=== PATIENT | female | born 1930 | race African-American/Black ===

== ENCOUNTER 2016-09-28 13:34 | Inpatient (IN) | payer OTHER ==
--- NOTE | 2016-09-28 14:53 | ED EKG INTERP ---
EKG Interpretation - EKG Time of EKG reading by physician:: 13:54 EKG Read and Signed by:: Samm Garcia EKG Interpretation (*Must complete 3 of following elements*): Abnormal Rate: 65 Rhythm: normal sinus rhythm Comments: RSR or QR pattern in V1 suggests right ventricular conduction delay Attestation - Scribe Verification/Attestation Scribe:: Isabell Salas Acting as Scribe for:: Samm Garcia Scribe documention review:: This chart was documented by a scribe and accurately reflects the service the provider performed and the decisions made by the provider.
[2016-09-28 15:06] LABS: MANUAL DIFF NEEDED? NO
[2016-09-28 15:08] LABS: BASO% 0.2 % (0.0-0.8); EOS# 0.02 X1000 (0.0-0.7); EOS% 0.2 % (0.0-10.0); HEMATOCRIT 34.9 % (37.0-47.0); HEMOGLOBIN 12.3 g/dL (12.0-16.0); IMM GRAN# 0.03 X1000 (0.0-0.04); IMM GRAN% 0.3 % (0.0-0.5); LYMPH# 1.55 X1000 (1.2-3.4); LYMPH% 14.7 % (20.5-51.1); MCH 31.1 PG (27-31); MCHC 35.2 g/dL (33-37); MCV 88.1 FL (81-99); MONO# 0.46 X1000 (0.11-0.59); MONO% 4.4 % (1.7-9.3); MPV 11.1 FL (7.4-10.4); NEUT% 80.2 % (42.2-75.2); PLT 229 X1000 (130-400); RBC 3.96 XMIL (4.2-5.4)
--- NOTE | 2016-09-28 15:25 | Diag Imaging Result Document ---
PROCEDURE NAME: CHEST-PORTABLE - 09/28/2016 SINGLE FRONTAL RADIOGRAPH OF THE CHEST: COMPARISON: 07/05/2015. FINDINGS: The lungs are grossly clear. There is no definite pleural fluid collection. 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 Cardiac silhouette and central vasculature are essentially unremarkable. There is evidence of prior granulomatous disease. IMPRESSION: Stable chest with no definite acute pathology.
--- NOTE | 2016-09-28 15:30 | PROVIDER DOCUMENTATION ---
HPI-General Adult - General Chief Complaint: Weakness Stated Complaint: DIZZY Time Seen by Provider: 09/28/16 13:44 Source: patient Allergies/Adverse Reactions: Patient Allergies Allergy/AdvReac Type Severity Reaction Status Date / Time No Known Allergies Allergy Verified 09/28/16 14:38 Home Medications: Home Medication List Medication Instructions Recorded Confirmed Last Taken Type Amlodipine Besylate 5 mg PO DAILY 07/27/12 09/28/16 09/28/16 History Losartan/Hydrochlorothiazide 1 each PO DAILY 07/27/12 09/28/16 09/28/16 History [Losartan-Hctz 100-25 mg Tab] Omeprazole 40 mg PO DAILY 05/05/15 09/28/16 09/28/16 History ATORVAstatin [Lipitor] 40 mg PO QHS 09/28/16 09/28/16 Unknown History Aspirin 81 mg PO DAILY 09/28/16 09/28/16 09/28/16 History Brimonidine 0.2% Ophth Soln 5 ml OPH DIRECTED 09/28/16 09/28/16 09/28/16 History [Alphagan 0.2% Ophth Soln] Clopidogrel Bisulfate [Plavix] 75 mg PO DAILY 09/28/16 09/28/16 09/28/16 History Cyproheptadine [Periactin] 4 mg PO BID 09/28/16 09/28/16 09/28/16 History Escitalopram Oxalate [Lexapro] 10 mg PO 09/28/16 09/28/16 History Metformin [Glucophage] 500 mg PO BID CC 09/28/16 09/28/16 Unknown History - History of Present Illness -Gen Adult Nature of Presenting Problems: Pt is 86 y/o F presents to the ED with weakness. Pt states recently started new med and has felt weak since taking it. Pt denies falling. Pt states blurred vision. Location of Pain/Injury: reports: generalized Pain Radiation: reports: no radiation Quality of Pain: reports: aching Severity: reports: mild Onset/Duration: reports: 1 week ago Timing: reports: still present Context/Activities at Onset: reports: light activity Modifying Factors: improves with: nothing Associated Symptoms: reports: weakness, other (blurred vision). denies: anxiety , arm pain, back/neck pain, chest pain, constipation, cough, diaphoresis, diarrhea, dizziness, EENT symptoms, fatigue, fever/chills, genitourinary problems, headaches, heartburn, joint pain, loss of appetite, malaise, muscle aches, sinus congestion/drainage, nausea, rash, seizure, shortness of breath, sensory/motor loss, pain with inspiration, swelling/mass in abdomen, syncope, vomiting, trouble walking Similar Symptoms Previously?: Yes Recently seen or treated by another doctor?: No Review of Systems - Adult - REVIEW OF SYSTEMS - ADULT Constitutional: reports: no symptoms reported Eyes: reports: blurred vision. denies: double vision Ears, Nose, Mouth & Throat: reports: no symptoms reported Cardiovascular: reports: no symptoms reported Respiratory: reports: no symptoms reported Gastrointestinal: reports: no symptoms reported Genitourinary: reports: no symptoms reported Musculoskeletal: reports: muscle weakness. denies: bone pain, joint pain, joint swelling Integumentary: reports: no symptoms reported Neurological: reports: no symptoms reported Psychiatric: reports: no symptoms reported Endocrine: reports: no symptoms reported Hematologic/Lymphatic: reports: no symptoms reported Allergic/Immunologic: reports: no symptoms reported All Other Systems: Reviewed and Negative Past History - Adult - PAST MEDICAL HISTORY-ADULT Review of Records: reports: Nursing Assessment Review, Medications Reviewed, Social history reviewed & non-contributory. Major Childhood Illnesses: reports: denies history Cardiovascular: reports: HTN Respiratory: reports: denies history Gastrointestinal: reports: GERD Obstetrical/Gynecological: reports: denies history Genitourinary: reports: denies history Musculoskeletal: reports: arthritis Neurological: reports: TIA Psychiatric: reports: denies history Endocrine/Immune: reports: cancer (breast), Diabetes Other Conditions: reports: denies history - PRIOR SURGERIES/PROCEDURES Surgical/Procedure History: reports: reviewed, not pertinent, cholecystectomy - PRIOR HOSPITALIZATIONS Prior Hospitalizations: reports: for other non-related - IMMUNIZATION STATUS Childhood Immunizations: See Nurse Assessment Flu Vaccine: See Nurse Assessment - FAMILY HISTORY Family History: reviewed, not pertinent - SOCIAL HISTORY Smoking: denies Substance Use: denies Living Situation: family Physical Exam-General - PHYSICAL EXAM-ADULT Initial Vital Signs Reviewed: Yes - CONSTITUTIONAL General Appearance: appears well, alert, no apparent distress - EYES Eyes: PERRL/EOMI, pink conjunctivae, fundi clear, no AV nicking - HEAD, EARS, NOSE, MOUTH & THROAT HENMT: normocephalic/atraumatic, normal ENT inspection. negative: moist mucous membranes (dry) - NECK Neck: non-tender, full range of motion, supple, normal inspection - RESPIRATORY Respiratory: chest non-tender, lungs clear, normal breath sounds, no pleuratic chest pain, no respiratory distress, no accessory muscle use - CARDIOVASCULAR Cardiovascular: normal peripheral pulses, regular rate, rhythm, no edema, no gallop, no JVD, no murmur - GASTROINTESTINAL (ABDOMEN) Abdominal Exam: normal bowel sounds, non tender, soft, no organomegaly, no pulsatile mass - LYMPHATIC Lymphatic: no adenopathy - MUSCULOSKELETAL Back Exam: normal inspection, no CVA tenderness, no vertebral tenderness Extremity: normal range of motion, non-tender, normal gait, normal inspection, no pedal edema, no calf tenderness, normal capillary refill, pelvis stable - SKIN Integumentary: normal color, normal turgor, warm/dry - NEUROLOGIC Neurologic: grossly normal - PSYCHIATRIC Psych/Mental Status: normal mood/affect, oriented x 3 Progress - PLAN OF CARE/RESULTS Progress/Plan/Lab Results: Laboratory Tests 09/28/16 09/28/16 14:56 14:56 WBC 10.52 RBC 3.96 L Hgb 12.3 Hct 34.9 L MCV 88.1 MCH 31.1 H MCHC 35.2 RDW Std Deviation 12.9 Plt Count 229 MPV 11.1 H Immature Gran % (Auto) 0.3 Neut % (Auto) 80.2 H Lymph % (Auto) 14.7 L Cameron % (Auto) 4.4 Eos % (Auto) 0.2 Baso % (Auto) 0.2 Immature Gran # (Auto) 0.03 Neut # (Auto) 8.44 H Lymph # (Auto) 1.55 Cameron # (Auto) 0.46 Eos # (Auto) 0.02 Baso # (Auto) 0.02 Troponin T < 0.010 Orders Category Date Time Status Cardiac Monitoring DIRECTED Care 09/28/16 14:47 Active Finger Stick Blood Sugar (ED) DIRECTED Care 09/28/16 14:47 Active Saline Loc NOW Care 09/28/16 14:47 Active CHEST-PORTABLE [RAD] Stat Exams 09/28/16 14:47 Draft CBC WITH ELECTRONIC DIFF [HEME] Stat Lab 09/28/16 14:56 Completed COMPREHENSIVE METABOLIC PANEL [CHEM] Stat Lab 09/28/16 14:56 Received PROTIME WITH INR [COAG] Stat Lab 09/28/16 14:56 Received PTT [COAG] Stat Lab 09/28/16 14:56 Received TROPONIN T Stat Lab 09/28/16 14:56 Completed EKG [EKG] Stat Ther 09/28/16 13:51 Ordered Vital Signs - 24 hr 09/28/16 13:46 Temperature 98.4 F Pulse Rate 70 Respiratory 18 Rate Blood Pressure 131/71 O2 Sat by Pulse 99 Oximetry Laboratory Tests 09/28/16 09/28/16 09/28/16 14:56 14:56 14:56 WBC 10.52 RBC 3.96 L Hgb 12.3 Hct 34.9 L MCV 88.1 MCH 31.1 H MCHC 35.2 RDW Std Deviation 12.9 Plt Count 229 MPV 11.1 H Immature Gran % (Auto) 0.3 Neut % (Auto) 80.2 H Lymph % (Auto) 14.7 L Cameron % (Auto) 4.4 Eos % (Auto) 0.2 Baso % (Auto) 0.2 Immature Gran # (Auto) 0.03 Neut # (Auto) 8.44 H Lymph # (Auto) 1.55 Cameron # (Auto) 0.46 Eos # (Auto) 0.02 Baso # (Auto) 0.02 PT 11.1 INR 1.05 PTT (Actin FS) 24.4 Specimen Type Sample Site pH pCO2 pO2 HCO3 Base Excess Oxyhemoglobin ABG O2 Sat (Calculated) ABG O2 Saturation ABG Carboxyhemoglobin ABG Methemoglobin Jhoan Test A-a O2 Difference Total Hemoglobin Lactate Blood Gas Modality FiO2 % Sodium 117 L* Potassium 4.7 Chloride 79 L Carbon Dioxide 22 L Anion Gap 16 BUN 32 H Creatinine 1.5 H Estimated GFR/1.73 m2 40 BUN/Creatinine Ratio 21 Glucose 898 H* Calculated Osmolality 286 Calcium 9.0 Total Bilirubin 0.72 AST 48 H ALT 42 H Alkaline Phosphatase 229 H Troponin T Total Protein 7.0 Albumin 3.8 Globulin 3.2 Albumin/Globulin Ratio 1.2 Urine Source Urine Color Urine Turbidity Urine pH Ur Specific Cardwell Urine Protein Ur Glucose (Stick) Ur Ketones (Stick) Urine Blood Urine Nitrite Urine Bilirubin Urobilinogen Dipstick Urine Leukocytes Urine WBC (Auto) Urine RBC (Auto) U Epithel Cells (Auto) Urine Bacteria (Auto) 0309/28/16 09/28/16 14:56 15:40 16:25 WBC RBC Hgb Hct MCV MCH MCHC RDW Std Deviation Plt Count MPV Immature Gran % (Auto) Neut % (Auto) Lymph % (Auto) Cameron % (Auto) Eos % (Auto) Baso % (Auto) Immature Gran # (Auto) Neut # (Auto) Lymph # (Auto) Cameron # (Auto) Eos # (Auto) Baso # (Auto) PT INR PTT (Actin FS) Specimen Type ARTERIAL Sample Site R RADIAL pH 7.45 pCO2 36 pO2 65 HCO3 25.8 Base Excess 1.2 Oxyhemoglobin 93.6 L ABG O2 Sat (Calculated) 16.6 ABG O2 Saturation 97.6 ABG Carboxyhemoglobin 2.30 ABG Methemoglobin 1.7 H Jhoan Test YES A-a O2 Difference 40.0 Total Hemoglobin 12.6 Lactate 1.40 Blood Gas Modality ROOM AIR FiO2 % 21.0 Sodium Potassium Chloride Carbon Dioxide Anion Gap BUN Creatinine Estimated GFR/1.73 m2 BUN/Creatinine Ratio Glucose Calculated Osmolality Calcium Total Bilirubin AST ALT Alkaline Phosphatase Troponin T < 0.010 Total Protein Albumin Globulin Albumin/Globulin Ratio Urine Source CLEAN CATCH Urine Color YELLOW Urine Turbidity CLEAR Urine pH 5.0 Ur Specific Cardwell 1.023 Urine Protein NEGATIVE Ur Glucose (Stick) >1000 A Ur Ketones (Stick) NEGATIVE Urine Blood NEGATIVE Urine Nitrite NEGATIVE Urine Bilirubin NEGATIVE Urobilinogen Dipstick NORMAL Urine Leukocytes NEGATIVE Urine WBC (Auto) <10 Urine RBC (Auto) <10 U Epithel Cells (Auto) <10 Urine Bacteria (Auto) NEGATIVE - XRAY 1 XRAY: Bilateral XRAY Study: Pelvis, Hip Impression: Normal XRAY Interpretation: no acute disease per Dr. Garcia - CONSULTS/PCP/HOSPITALIST Notification #1 *Consult/PCP/Hospitalist*: Dr. Stiles Time Discussed: 17:58 Reason/Comments: Dr. Garcia consults with Dr. Webber about admit of PT Consult Disposition: Admit Departure - Departure Time of Disposition Order: 17:50 DIAGNOSIS: Hyperglycemia, Dehydration Disposition: ADMITTED INPATIENT 09 Certified Medical Emergency: Emergent Condition: Stable Additional Instructions: ED Follow Up Instructions: You have been treated by a care provider in the Emergency Department. These instructions are being provided to you so you can have an understanding of how to care for yourself upon discharge. Upon discharge from the Emergency Department, you are responsible for making arrangements for follow-up care by a physician of your choice. Take all prescribed medications as directed. Return to the Emergency Department immediately for any new or worsening symptoms. You may call the Physician Referral phone number at [phone] to obtain a list of Physicians who are taking new patients. Referrals: Lianet Garrido MD [Primary Care Provider] - Attestation - Scribe Verification/Attestation Scribe:: Isabell Salas Acting as Scribe for:: Samm Garcia Scribe documention review:: This chart was documented by a scribe and accurately reflects the service the provider performed and the decisions made by the provider.
[2016-09-28 15:40] LABS: INR 1.05; PROTIME 11.1 Seconds (9.2-11.7); PTT 24.4 Seconds (22.0-36.0)
[2016-09-28] MEDS ORDERED: NS 1,000 ML IV ONE (15:40)
[2016-09-28] MEDS ORDERED: ZOFRAN IV ONE (15:40)
[2016-09-28 15:52] LABS: URINE CULTURE NEEDED? NO; URINE MICRO REVIEW NEEDED? NO; URINE SOURCE CLEAN CATCH
[2016-09-28 15:53] LABS: ALBUMIN 3.8 g/dL (3.5-5.0); POTASSIUM 4.7 mmol/L (3.5-5.1); TOTAL BILIRUBIN 0.72 mg/dL (0.20-1.00)
[2016-09-28 16:02] LABS: BILIRUBIN URINE NEGATIVE (NEGATIVE); BLOOD URINE NEGATIVE (NEGATIVE); COLOR YELLOW; GLUCOSE URINE >1000 mg/dL (NEGATIVE); LEUKOCYTES URINE NEGATIVE (NEGATIVE); NITRITE URINE NEGATIVE (NEGATIVE); PROTEIN URINE NEGATIVE (NEGATIVE); SP GRAVITY URINE 1.023; TURBIDITY URINE CLEAR (CLEAR); UROBILINOGEN URINE NORMAL (NORMAL)
[2016-09-28] MEDS ORDERED: HUMULIN R IV ONE ×2 (16:02→18:59)
[2016-09-28 16:04] LABS: UR EPITHELIAL CELLS <10 /HPF (<10); URINE BACTERIA NEGATIVE /HPF; URINE RBC <10 /HPF (<10); URINE WBC <10 /HPF (<10)
[2016-09-28 16:35] LABS: ALLEN TEST YES; BE 1.2 mmoll (-3.0-3.0); BLOOD TYPE ARTERIAL; DRAW SITE R RADIAL; METHB 1.7 % (0.0-1.5); MODALITY ROOM AIR; O2(CT) 16.6 mL/dL (15.0-23.0); PCO2(98.6) 36 mmHg (35-45); PO2(98.6) 65 mmHg (60-100); SAMPLE BLOOD; SAO2 97.6 % (95.0-100.0); THB 12.6 g/dL (11.5-17.4); pH(98.6) 7.45 (7.35-7.45)
[2016-09-28 18:17] LABS: HEMOGLOBIN A1C 11.3 % (4.8-6.0)
--- NOTE | 2016-09-28 18:31 | Diag Imaging Result Document ---
PROCEDURE NAME: XRAY PELVIS W/HIP 2-3VW RT - 09/28/2016 PLAIN RADIOGRAPH OF THE PELVIS AND RIGHT HIP, 2 VIEWS: COMPARISON: None available. FINDINGS: There are degenerative changes involving the lower lumbar spine. The hip joint space appears to be preserved. There is no definite fracture, dislocation, or intrinsic osseous lesion, otherwise. No definite bony erosions are identified at the hip. There is atherosclerotic calcification involving both thighs and in the pelvis. 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 No evidence of acute osseous abnormality.
[2016-09-28] MEDS ORDERED: ALPHAGAN 0.2% OPHTH SOLN OPH SCH (18:59)
[2016-09-28] MEDS ORDERED: ZOFRAN IV PRN (18:59)
[2016-09-28] MEDS: PRILOSEC PO SCH (20:00)
[2016-09-28] MEDS ORDERED: HUMULIN R 100 UNIT in NS 100 ML IV SCH (20:00)
[2016-09-28] MEDS: HUMULIN R 100 UNIT in NS 100 ML IV SCH ×3 (20:30→23:28)
[2016-09-28] MEDS: NS + KCL 20 MEQ 1,000 ML IV SCH (20:30)
--- NOTE | 2016-09-28 22:00 | HISTORY AND PHYSICAL ---
Ms Choudhary is 86 years old. PAST MEDICAL HISTORY: Has diabetes mellitus. She is followed by Dr. Garrido. She has hypercholesterolemia and hypertension. Recently started a week ago on Lexapro and it was because she is having a lot of sweating. LIST OF MEDICINES AT HOME: Lipitor 40 mg a day, amlodipine 5 mg a day, aspirin 81 mg a day, Alphagan eye drops 0.2% both eyes I believe, Plavix 75 mg a day, Periactin 4 mg p.o. b.i.d., Lexapro 10 mg p.o. daily, losartan/hydrochlorothiazide 100/25 daily, metformin 500 mg b.i.d., and omeprazole 40 mg daily. Chest x-ray. Stable chest with no definite acute pathology. Lungs are grossly clear. 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 Cardiac silhouette and cervical vasculature essentially unremarkable, there is evidence of prior granulomatous disease. FAMILY HISTORY: Noncontributory. ALLERGIES: No known drug allergies. SOCIAL HISTORY: Negative for alcohol or tobacco. REVIEW OF SYSTEMS: In general she feels like she has lost some weight. She has not eaten in over a week maybe 2 weeks, family says she just drinking Pepsis here and there and really not eating. She has not checked her sugar in over 2 weeks, before that she said her sugars were doing well. She presented to the hospital. Her main complaint is that for this last week her legs are very weak and getting weaker and she did not feel like she can hold her herself up. She got a film over her eyes feeling. She has no other lateralizing complaints just general weakness and do not feel good. She says she does not have any appetite. She has a low grade nausea that persists, no pain. In the emergency room we found her blood sugar was 898, sodium was 117. She appeared intravascularly dry. EXAM: Vital signs: She is afebrile, temp 98.4 degrees, pulse 68, respirations 20, blood pressure 197/79, O2 saturation 96%, weight 130 pounds, height 5 feet 5 inches. HEENT: Pupils are equal and round. CVP less than 6 cm. Conjunctiva a little bit injected left more than the right. CVP less than 6 cm. Abdomen: Soft. Skin: Warm and dry. Lungs: Clear in all lung iniguez. Cardiovascular: Regular rhythm and rate without murmur or S3. DATA: Fingerstick was 898 blood sugar. White blood cell count 10,520, hematocrit 34, platelet count 229,000. Sodium 117, potassium 4.7, chloride 79, bicarb 22, BUN 32, creatinine 1.5, blood sugar in serum was 898, hemoglobin A1c 11.3, AST 48, ALT 42, alkaline phos 229, albumin 3.8, pro time was 11, INR 1.05, PTT was 24. Acetone was negative. Urinalysis unremarkable. Blood gases, pH was 7.45, pCO2 36, PO2 65, O2 saturation was 93% on room air, 21% FiO2. ASSESSMENT/PLAN: 1. Hyperosmolar hyperglycemia with hyponatremia. We need to put her on some insulin drip. I will actually give her some normal saline run that in at 125 mL an hour. We will watch her sodium level closely. 2. Hypovolemic hyponatremia in the face of hyperosmolar hyperglycemia. Give her normal saline. When the sugars get below 200 we will change her just to subcu insulin. 3. Diabetes mellitus type 2. I suspect she is going to have to go on an insulin regimen and will see if we can get that set up and regulated. 4. Hypercholesterolemia. Continue her Lipitor. 5. Hypertension with accelerated hypertension at present time. Her renal function looks good and well renal function creatinine 1.5 and I do not know what her baseline is. I am going to start her on some CECILY inhibitor eventually but I think at the present time will use Apresoline to try and get the blood pressure down. 6. Just no appetite not eating. I am going to hold the Lexapro and we will keep her on clear liquids tonight, hopefully we can get her eating and start p.o. intake. We are going to hold the metformin as well.
[2016-09-28 22:28] LABS: CALCIUM 9.3 mg/dL (8.8-10.2); POTASSIUM 3.6 mmol/L (3.5-5.1)
[2016-09-28 22:58] LABS: URINE CULTURE NEEDED? NO; URINE MICRO REVIEW NEEDED? NO; URINE SOURCE CLEAN CATCH
[2016-09-28 23:00] LABS: BILIRUBIN URINE NEGATIVE (NEGATIVE); BLOOD URINE NEGATIVE (NEGATIVE); COLOR YELLOW; GLUCOSE URINE >1000 mg/dL (NEGATIVE); LEUKOCYTES URINE NEGATIVE (NEGATIVE); NITRITE URINE NEGATIVE (NEGATIVE); PROTEIN URINE NEGATIVE (NEGATIVE); SP GRAVITY URINE 1.019; TURBIDITY URINE CLEAR (CLEAR); UR EPITHELIAL CELLS <10 /HPF (<10); URINE BACTERIA NEGATIVE /HPF; URINE RBC <10 /HPF (<10); URINE WBC <10 /HPF (<10); UROBILINOGEN URINE NORMAL (NORMAL)
[2016-09-28] MEDS: LIPITOR PO SCH (23:20)
[2016-09-28] MEDS: PERIACTIN PO SCH (23:20)
[2016-09-28 23:42] LABS: ALBUMIN 3.3 g/dL (3.5-5.0); CALCIUM 9.1 mg/dL (8.8-10.2); POTASSIUM 3.8 mmol/L (3.5-5.1); TOTAL BILIRUBIN 0.46 mg/dL (0.20-1.00); TOTAL PROTEIN 6.1 g/dL (6.3-8.3)
[2016-09-29] MEDS: HUMULIN R 100 UNIT in NS 100 ML IV SCH (00:30)
[2016-09-29 02:02] LABS: ALBUMIN 3.2 g/dL (3.5-5.0); CALCIUM 8.7 mg/dL (8.8-10.2); POTASSIUM 4.1 mmol/L (3.5-5.1); TOTAL BILIRUBIN 0.48 mg/dL (0.20-1.00); TOTAL PROTEIN 5.8 g/dL (6.3-8.3)
[2016-09-29] MEDS: NS + KCL 20 MEQ 1,000 ML IV SCH ×4 (03:32→18:19)
[2016-09-29 03:54] LABS: ALBUMIN 3.1 g/dL (3.5-5.0); CALCIUM 8.8 mg/dL (8.8-10.2); POTASSIUM 4.2 mmol/L (3.5-5.1); TOTAL BILIRUBIN 0.66 mg/dL (0.20-1.00)
[2016-09-29 05:50] LABS: BASO% 0.3 % (0.0-0.8); EOS# 0.11 X1000 (0.0-0.7); EOS% 1.1 % (0.0-10.0); HEMATOCRIT 23.5 % (37.0-47.0); IMM GRAN# 0.04 X1000 (0.0-0.04); IMM GRAN% 0.4 % (0.0-0.5); LYMPH# 3.94 X1000 (1.2-3.4); LYMPH% 37.8 % (20.5-51.1); MANUAL DIFF NEEDED? NO; MCH 43.7 PG (27-31); MCHC 46.8 g/dL (33-37); MCV 93.3 FL (81-99); MONO# 0.57 X1000 (0.11-0.59); MONO% 5.5 % (1.7-9.3); MPV 10.7 FL (7.4-10.4); NEUT% 54.9 % (42.2-75.2); PLT 197 X1000 (130-400); RBC 2.52 XMIL (4.2-5.4)
--- NOTE | 2016-09-29 06:07 | EKG Report ---
Test Performed on : 09/28/2016 1:54:47 PM Test Reason : weakness Blood Pressure : / mmHG Vent. Rate : 065 BPM Atrial Rate : 065 BPM P-R Int : 138 ms QRS Dur : 090 ms QT Int : 424 ms P-R-T Axes : 000 -07 017 degrees QTc Int : 440 ms Normal sinus rhythm. RSR' or QR pattern in V1 suggests right ventricular conduction delay Borderline ECG When compared with ECG of 25-JUL-2015 08:11, No significant change was found Unconfirmed Result
[2016-09-29 06:09] LABS: CALCIUM 8.7 mg/dL (8.8-10.2); POTASSIUM 4.5 mmol/L (3.5-5.1); TOTAL BILIRUBIN 0.63 mg/dL (0.20-1.00); TOTAL PROTEIN 5.8 g/dL (6.3-8.3)
[2016-09-29] MEDS: HUMULIN R SUBQ SCH ×3 (06:45→16:27)
[2016-09-29] MEDS ORDERED: NON-FORMULARY MED (Omeprazole [Omeprazole] 40 MG) PO SCH (09:00)
[2016-09-29] MEDS: PRILOSEC PO SCH ×2 (09:27→18:05)
[2016-09-29] MEDS: ASPIRIN PO SCH (09:28)
[2016-09-29] MEDS: NORVASC PO SCH (09:28)
[2016-09-29] MEDS: PLAVIX PO SCH (09:28)
[2016-09-29] MEDS: PERIACTIN PO SCH ×2 (10:17→21:27)
--- NOTE | 2016-09-29 11:56 | PROGRESS NOTE ---
DATE: 09/29/2016 Ms. Choudhary is feeling a little better. She was sleepy and slept most of the night. Still in the emergency room holding. OBJECTIVE: Vital Signs: Temp 98.7 degrees, pulse 64, respirations 20, blood pressure 122/70. HEENT: Pupils equal, round, reactive to light and accommodation. Oral and nasal mucosa unremarkable. Conjunctivae pink. Sclerae clear. Tympanic membranes intact. Neck: Supple without adenopathy or thyromegaly. Urine output was a little over 3 L which is very good. LAB: From this morning, white count 10,420, hematocrit 23, platelet count 197,000. Chemistries: Sodium up to 136, potassium 4.5, chloride 102, BUN 26, creatinine 1.3. Blood sugars have come down nicely. ASSESSMENT AND PLAN: 1. Hyperosmolar, hyperglycemic state which is resolved fairly quickly. Also hyponatremia which has improved. We are going to see how we do. Continue fluid and we have her on subcutaneous sliding scale insulin and we are going to see if we can advance her diet and see if she will start eating a little bit. 2. Diabetes mellitus type 2. 3. Hypertension. REVIEW OF ORDERS: I do not see any changes. Continue present fluid and give her an 1800 calorie ADA diet and see how we do.
[2016-09-29] MEDS ORDERED: HUMULIN 70/30 SUBQ ONE (13:20)
[2016-09-29] MEDS ORDERED: INSULIN PEN NEEDLES ONE (13:58)
[2016-09-29] MEDS: LIPITOR PO SCH (21:27)
[2016-09-29] MEDS: HUMULIN 70/30 SUBQ SCH (21:28)
[2016-09-30] MEDS: HUMULIN R SUBQ SCH ×5 (01:11→21:28)
[2016-09-30] MEDS: NS + KCL 20 MEQ 1,000 ML IV SCH ×4 (01:51→21:27)
[2016-09-30 05:46] LABS: ALBUMIN 2.7 g/dL (3.5-5.0); CALCIUM 8.3 mg/dL (8.8-10.2); MAGNESIUM 1.5 mg/dL (1.5-2.7); POTASSIUM 4.7 mmol/L (3.5-5.1); TOTAL BILIRUBIN 0.65 mg/dL (0.20-1.00); TOTAL PROTEIN 5.4 g/dL (6.3-8.3)
[2016-09-30 05:59] LABS: MANUAL DIFF NEEDED? NO
[2016-09-30 05:59] LABS: HEMOGLOBIN A1C 11.5 % (4.8-6.0)
[2016-09-30 06:00] LABS: HEMATOCRIT 30.3 % (37.0-47.0); HEMOGLOBIN 10.8 g/dL (12.0-16.0); MCH 31.6 PG (27-31); MCHC 35.6 g/dL (33-37); MCV 88.6 FL (81-99); MPV 10.8 FL (7.4-10.4); PLT 189 X1000 (130-400); RBC 3.42 XMIL (4.2-5.4)
[2016-09-30 06:01] LABS: BASO% 0.4 % (0.0-0.8); EOS# 0.18 X1000 (0.0-0.7); EOS% 1.8 % (0.0-10.0); IMM GRAN# 0.05 X1000 (0.0-0.04); IMM GRAN% 0.5 % (0.0-0.5); LYMPH# 3.91 X1000 (1.2-3.4); LYMPH% 38.1 % (20.5-51.1); MONO% 5.9 % (1.7-9.3); NEUT% 53.3 % (42.2-75.2)
[2016-09-30] MEDS: PRILOSEC PO SCH ×2 (06:26→18:08)
--- NOTE | 2016-09-30 08:24 | PROGRESS NOTE ---
DATE: 09/30/2016 SUBJECTIVE: Ms. Choudhary is sleeping comfortably, easy to arouse. She feels much better. Feels a lot stronger. OBJECTIVE: Vital Signs: Temperature 99, pulse 70, respirations 20, blood pressure 127/86. Eyes: Pupils are equal, round, reactive. Respiratory: Lungs are clear in all lung iniguez. Cardiovascular: Exam regular rhythm and rate without murmur or S3. Abdomen: Soft. Skin: Warm and dry. LABS: Urine output was 1575. Blood sugars 253, 137, her last 2. Blood work: White count 10,250, hematocrit 30, platelet count 189,000. Chemistry: Sodium 141, potassium 4.7, chloride 112, bicarb 19, BUN 16, creatinine 1.1. Blood sugar is 173, 109, 137. AST was 55, ALT was 39, alkaline phos 180. ASSESSMENT AND PLAN: 1. Hyperosmolar hyperglycemic state. Doing much better. I started her on a split insulin 70/30, and I will see how we do with physical therapy. She feels better, legs are stronger. 2. Diabetes mellitus type 2. 3. Hypertension. Review of orders. She is now still on sliding scale. Still getting fluid at 150 mL an hour with normal saline with 20 mEq KCl. Check electrolytes again in the morning. She is on 70/30 at 10 units subcu twice a day.
[2016-09-30] MEDS: HUMULIN 70/30 SUBQ SCH ×2 (08:42→21:28)
[2016-09-30] MEDS: ASPIRIN PO SCH (08:42)
[2016-09-30] MEDS: PERIACTIN PO SCH ×2 (08:42→21:27)
[2016-09-30] MEDS: PLAVIX PO SCH (08:42)
[2016-09-30] MEDS: NORVASC PO SCH (08:42)
[2016-09-30] MEDS: LIPITOR PO SCH (21:27)
[2016-10-01] MEDS: NS + KCL 20 MEQ 1,000 ML IV SCH (04:00)
[2016-10-01 05:22] LABS: ALBUMIN 2.6 g/dL (3.5-5.0); MAGNESIUM 1.2 mg/dL (1.5-2.7); POTASSIUM 4.8 mmol/L (3.5-5.1); TOTAL BILIRUBIN 0.79 mg/dL (0.20-1.00); TOTAL PROTEIN 5.1 g/dL (6.3-8.3)
[2016-10-01] MEDS: TYLENOL PO PRN ×2 (05:51→10:54)
[2016-10-01] MEDS: PRILOSEC PO SCH ×3 (05:51→18:16)
[2016-10-01] MEDS: HUMULIN R SUBQ SCH ×4 (06:05→21:59)
[2016-10-01] MEDS ORDERED: MAGNESIUM SULFATE 2 GM/S.W.I. 50 ML IV ONE (09:31)
[2016-10-01] MEDS: HUMULIN 70/30 SUBQ SCH ×3 (10:02→21:58)
[2016-10-01] MEDS: PLAVIX PO SCH (10:03)
[2016-10-01] MEDS: PERIACTIN PO SCH ×2 (10:03→21:58)
[2016-10-01] MEDS: ASPIRIN PO SCH (10:03)
[2016-10-01] MEDS: NORVASC PO SCH (10:04)
[2016-10-01] MEDS: MAG-OX PO SCH ×2 (10:07→21:58)
--- NOTE | 2016-10-01 13:02 | PROGRESS NOTE ---
DATE: 10/01/2016 Ms. Choudhary feels much better. She still is a little wobbly walking around. Her blood sugars are staying around the 200s. She needs to learn how to do the injections and I would like to see if we can get her sugars down a little better. She needs to be a little more stable on her feet and if not we need to pursue going to rehab.Vital Signs: Temp 99.2 degrees, pulse 78, respirations 14, blood pressure 167/65. HEENT: Pupils are equal, round. Lungs: Are clear in all lung iniguez. Cardiovascular: Regular rhythm and rate without murmur or S3. Abdomen: Soft. Skin: Is warm and dry. Urine output 3500. Hematocrit was stable at 30 yesterday. Electrolytes look good. Sodium 140, potassium 4.8 chloride 114. ASSESSMENT/PLAN: Presented with hyperosmolar hyperglycemic state and has improved quite a bit. We will adjust her twice a day scheduled insulin and see if we can get her sugars down a little more. Continue physical therapy and then continue to see how we do. Magnesium was 1.2 so we need to give her some magnesium and I will do that today.
[2016-10-01] MEDS: LIPITOR PO SCH (21:58)
[2016-10-02 06:03] LABS: AGAP 13; BUN 10 mg/dL (8-22); CALCIUM 8.6 mg/dL (8.8-10.2); CHLORIDE 110 mmol/L (98-107); COSMO 280; MAGNESIUM 1.6 mg/dL (1.5-2.7); POTASSIUM 4.6 mmol/L (3.5-5.1); SODIUM 140 mmol/L (136-145); TCO2 17 mmol/L (25-35)
[2016-10-02] MEDS: PRILOSEC PO SCH ×2 (06:17→07:00)
[2016-10-02] MEDS: HUMULIN R SUBQ SCH ×4 (06:17→20:53)
[2016-10-02] MEDS: TYLENOL PO PRN (06:18)
[2016-10-02] MEDS ORDERED: INSULIN PEN NEEDLES ONE (08:36)
[2016-10-02] MEDS: ASPIRIN PO SCH (08:38)
[2016-10-02] MEDS: NORVASC PO SCH (08:38)
[2016-10-02] MEDS: MAG-OX PO SCH ×2 (08:38→20:53)
[2016-10-02] MEDS: PLAVIX PO SCH (08:38)
[2016-10-02] MEDS: PERIACTIN PO SCH ×2 (08:39→20:53)
[2016-10-02] MEDS: HUMULIN 70/30 SUBQ SCH ×2 (08:39→16:36)
--- NOTE | 2016-10-02 09:33 | PROGRESS NOTE ---
DATE: 10/02/2016 SUBJECTIVE: Ms. Choudhary feels much better. Breathing is comfortable. Stronger. Eating well. OBJECTIVE: Vital Signs: Temperature at night 97, pulse 18, blood pressure 164/60. Eyes: Pupils are equal, round. Lungs: Are clear in all lung iniguez. Cardiovascular: Regular rhythm and rate without murmur or S3. Abdomen: Soft. Skin: Warm and dry. LABS: Blood sugars 257, 162. Lab reviewed from yesterday, her CBC, hematocrit is stable at 30. Chemistries today, sodium 140, potassium 4.6, chloride 110, bicarb 17, BUN 10, creatinine 0.9, blood sugar 266, 132, 162. ASSESSMENT AND PLAN: 1. Hyperosmolar hyperglycemic state which is corrected. Sugars look like they are much better controlled. 2. General weakness and unstable walking. I think this is improved see how we do walk around today. We have supplemented potassium and magnesium. They looked good. Teach her how to administer insulin. Note her magnesium is 1.6. Hopefully, she can go home in the morning.
[2016-10-02] MEDS: LIPITOR PO SCH (21:35)
[2016-10-03] MEDS: PRILOSEC PO SCH (06:31)
[2016-10-03] MEDS: HUMULIN R SUBQ SCH ×2 (06:34→11:25)
[2016-10-03] MEDS: MAG-OX PO SCH (09:14)
[2016-10-03] MEDS: PLAVIX PO SCH (09:14)
[2016-10-03] MEDS: ASPIRIN PO SCH (09:14)
[2016-10-03] MEDS: PERIACTIN PO SCH (09:14)
[2016-10-03] MEDS: HUMULIN 70/30 SUBQ SCH (09:14)
[2016-10-03] MEDS: NORVASC PO SCH (09:14)
[2016-10-03 11:51] VITALS: BP 136/51
[2016-10-03] MEDS ORDERED: INSULIN PEN NEEDLES ONE (11:58)
--- NOTE | 2016-10-03 15:14 | DISCHARGE SUMMARY ---
ADMISSION DATE: 09/28/2016 DISCHARGE DATE: 10/03/2016 HOSPITAL COURSE: This is an 86-year-old, black female who has a history of diabetes followed by Dr. Garrido. She has a history of hypercholesterolemia and hypertension. She recently started a week ago on Lexapro. She was having a lot of sweating at home. The patient was on Lipitor, amlodipine, aspirin, Alphagan eye drops, Plavix, Pertactin 4 mg b.i.d., Lexapro 10 mg a day, losartan/hydrochlorothiazide 100/25 daily, metformin 500 mg b.i.d., and omeprazole 40 mg daily. She presented to the emergency room with weakness and had not eaten in a couple of weeks. Her sugar was above 800 and she had a hyperosmolar- hyperglycemic state. We gave her some fluids and put her on some IV insulin drip. Her sugars came down nicely and then we put her on a twice a day insulin schedule. She also had hyponatremia which corrected nicely. Her strength improved. She felt like she had a film around her eyes that seemed to resolve as well in the first 24 hours. I put her on split dosing b.i.d. insulin which she tolerated well. I plan to discharge her home on 10/03/2016. She will take her Norvasc 5 mg a day, aspirin once a day, Lipitor 40 mg a day, Alphagan 0.2% eye drops, Plavix 75 mg a day, Periactin 4 mg b.i.d., and I have her on 70/30 insulin 10 units twice a day. She was taking omeprazole 40 mg a day and I will have her continue that. I plan to see her back in my office in 4 weeks.
== END 2016-10-03 12:15 | disposition home health service (06) | DRG 638 ==
LOC: ED 13:34 → EDIPHOLD 20:00 → 3S 09-29 11:44
PROVIDERS: ATTEND Emergency Medicine
DX: E11.00 Type 2 diabetes mellitus with hyperosmolarity without nonketotic hyperglycemic-hyperosmolar coma (NKHHC) (principal); E87.1 Hypo-osmolality and hyponatremia; I10 Essential (primary) hypertension; E78.00 Pure hypercholesterolemia, unspecified; Z79.899 Other long term (current) drug therapy; Z79.82 Long term (current) use of aspirin; Z79.02 Long term (current) use of antithrombotics/antiplatelets; Z79.84 Long term (current) use of oral hypoglycemic drugs
CPT/HCPCS: 71010; 80048; 80053; 81001; 82009; 82805; 82948; 83036; 83735; 84443; 84484; 85025; 85610; 85730; 93005; 96361; 96365; 96366; 96367; 96368; 96375; J2405; J3475; J3480; J7030; 97116-GP; 97530-GP

== ENCOUNTER 2016-11-06 16:26 | Inpatient (IN) ==
[2016-11-06] MEDS ORDERED: NS 1,000 ML IV SCH (17:32)
--- NOTE | 2016-11-06 17:45 | PROVIDER DOCUMENTATION ---
This chart was entered by Josesito Baugh Scribe, acting as scribe for Aurelio Sharp MD. HPI-Syncope/Dizziness - General Source: patient - History of Present Illness-Syncope/Dizzy Prior Episodes: reports: multiple episodes today Onset/Duration: reports: abrupt, this morning Timing: reports: intermittent Position/Activity at time of episode: reports: sitting Symptoms prior to episode: reports: lightheaded Context: reports: lost consciousness Loss of Consciousness: brief (seconds) Location of injury. (If syncope resulted in an injury.): reports: head (face) Current Symptoms: reports: weakness, lightheaded, lightheaded Recently Seen Here or By Another Healthcare Provider: No <Aurelio Sharp - Last Filed: 11/06/16 17:45> <Nilo Acevedo - Last Filed: 11/06/16 18:17> - General Chief Complaint: Syncope Stated Complaint: blood in stool/fall Time Seen by Provider: 11/06/16 17:14 Allergies/Adverse Reactions: Patient Allergies Allergy/AdvReac Type Severity Reaction Status Date / Time No Known Allergies Allergy Verified 11/06/16 17:41 Home Medications: Home Medication List Medication Instructions Recorded Confirmed Last Taken Type Amlodipine Besylate 5 mg PO DAILY 07/27/12 11/06/16 09/28/16 History Losartan/Hydrochlorothiazide 1 each PO DAILY 07/27/12 11/06/16 09/28/16 History [Losartan-Hctz 100-25 mg Tab] Omeprazole 40 mg PO DAILY 05/05/15 11/06/16 09/28/16 History ATORVAstatin [Lipitor] 40 mg PO QHS 09/28/16 11/06/16 Unknown History Aspirin 81 mg PO DAILY 09/28/16 11/06/16 09/28/16 History Brimonidine 0.2% Ophth Soln 5 ml OPH DIRECTED 09/28/16 11/06/16 09/28/16 History [Alphagan 0.2% Ophth Soln] Clopidogrel Bisulfate [Plavix] 75 mg PO DAILY 09/28/16 11/06/16 09/28/16 History Cyproheptadine [Periactin] 4 mg PO BID 09/28/16 11/06/16 09/28/16 History Escitalopram Oxalate [Lexapro] 10 mg PO DAILY 09/28/16 11/06/16 09/28/16 History Insulin Humulin 70/30 [Humulin 10 unit SUBQ BID@9606,0180 #60 10/03/16 11/06/16 Unknown Rx 70/30] [email or web address] - History of Present Illness-Syncope/Dizzy Nature of Presenting Problem: patient is a 86 y/o f that presents to the ER after having syncope with multiple episodes of bloody stools. patient reports first episode happened this am and patient actually passed out striking her face. Since she has had several episodes of painless bloody BMs (Josesito Baugh) patient is a 86 y/o f that presents to the ER after having syncope with multiple episodes of bloody stools. patient reports first episode happened this am and patient actually passed out striking her face. Since she has had several episodes of painless bloody BMs (Aurelio Sharp) Review of Systems - Adult - REVIEW OF SYSTEMS - ADULT Constitutional: denies: chills, fever Eyes: denies: decreased vision, blurred vision, double vision Ears, Nose, Mouth & Throat: denies: ear pain, sinus problem, throat pain, throat swelling Cardiovascular: reports: syncope. denies: chest pain, palpitations Respiratory: denies: cough, shortness of breath, wheezing Gastrointestinal: reports: rectal bleeding. denies: abdominal pain, nausea, vomiting Genitourinary: reports: no symptoms reported Musculoskeletal: reports: muscle weakness. denies: muscle aches Integumentary: reports: see HPI Neurological: reports: syncope. denies: dizziness/vertigo, headache/migraines, seizure, slurred speech Psychiatric: reports: no symptoms reported Endocrine: reports: no symptoms reported Hematologic/Lymphatic: reports: no symptoms reported Allergic/Immunologic: reports: no symptoms reported All Other Systems: Reviewed and Negative <Aurelio Sharp - Last Filed: 11/06/16 17:45> - REVIEW OF SYSTEMS - ADULT Constitutional: denies: fever <Nilo Acevedo - Last Filed: 11/06/16 18:17> Past History - Adult - PAST MEDICAL HISTORY-ADULT Review of Records: reports: Old Records Reviewed, Nursing Assessment Review, Medications Reviewed Cardiovascular: reports: HTN Gastrointestinal: reports: GERD Musculoskeletal: reports: arthritis Neurological: reports: TIA Endocrine/Immune: reports: cancer (breast), Diabetes, thyroid disorder - PRIOR SURGERIES/PROCEDURES Surgical/Procedure History: reports: reviewed, not pertinent, cholecystectomy - PRIOR HOSPITALIZATIONS Prior Hospitalizations: reports: for other non-related - IMMUNIZATION STATUS Childhood Immunizations: See Nurse Assessment Flu Vaccine: See Nurse Assessment - FAMILY HISTORY Family History: reviewed, not pertinent - SOCIAL HISTORY Smoking: non-smoker Living Situation: family <Aurelio Sharp - Last Filed: 11/06/16 17:45> - PAST MEDICAL HISTORY-ADULT Review of Records: reports: Old Records Reviewed, Nursing Assessment Review, Medications Reviewed, Social history reviewed & non-contributory. <Nilo Acevedo - Last Filed: 11/06/16 18:17> Physical Exam-General - PHYSICAL EXAM-ADULT Initial Vital Signs Reviewed: Yes - CONSTITUTIONAL General Appearance: alert, mild distress - EYES Eyes: PERRL/EOMI, pale conjunctivae - HEAD, EARS, NOSE, MOUTH & THROAT HENMT: moist mucous membranes, normal ENT inspection - NECK Neck: full range of motion, normal inspection - RESPIRATORY Respiratory: lungs clear, normal breath sounds, no respiratory distress, no accessory muscle use - CARDIOVASCULAR Cardiovascular: regular rate, rhythm, no gallop, no murmur - GASTROINTESTINAL (ABDOMEN) Abdominal Exam: normal bowel sounds, non tender, soft, no organomegaly, no pulsatile mass - GENITOURINARY Rectal Exam: other (bloody stool noted). negative: tenderness Hemoccult Exam: heme positive stool - MUSCULOSKELETAL Extremity: normal range of motion, normal inspection, no pedal edema - SKIN Integumentary: warm/dry, ecchymosis (right cheek), pallor - NEUROLOGIC Neurologic: grossly normal, no motor/sensory deficits - PSYCHIATRIC Psych/Mental Status: normal mood/affect, normal thought content, normal thought process, oriented x 3 <Aurelio Sharp - Last Filed: 11/06/16 17:45> - PHYSICAL EXAM-ADULT Initial Vital Signs Reviewed: Yes - CONSTITUTIONAL General Appearance: alert <Nilo Acevedo - Last Filed: 11/06/16 18:17> Progress - EKG 1 Time of EKG reading by physician:: 16:43 EKG Read and Signed by:: Aurelio Sharp EKG Interpretation (*Must complete 3 of following elements*): Normal Rate: 71 Rhythm: NSR [place]: normal QRS: normal DC Interval: normal ST Wave: normal <Aurelio Sharp Tory. - Last Filed: 11/06/16 17:45> - PLAN OF CARE/RESULTS Result Diagrams: 11/06/16 17:33 11/06/16 17:33 <TerriNilo marieTeresa - Last Filed: 11/06/16 18:17> - PLAN OF CARE/RESULTS Progress/Plan/Lab Results: Vital Signs - 8 hr 11/06/16 16:34 Temperature 98.3 F Pulse Rate 84 Respiratory Rate 18 Blood Pressure 134/80 O2 Sat by Pulse Oximetry 100 Laboratory Results - last 24 hr 11/06/16 11/06/16 17:33 17:33 WBC 11.02 H RBC 1.84 L Hgb 9.1 L Hct 17.9 L MCV 97.3 MCH 49.5 H MCHC > 40.0 H RDW Std Deviation 14.7 H Plt Count 255 MPV 10.6 H Immature Gran % (Auto) 0.2 Neut % (Auto) 65.4 Lymph % (Auto) 27.7 [place] % (Auto) 5.8 Eos % (Auto) 0.5 Baso % (Auto) 0.4 Immature Gran # (Auto) 0.02 Neut # (Auto) 7.22 H Lymph # (Auto) 3.05 [place] # (Auto) 0.64 H Eos # (Auto) 0.05 Baso # (Auto) 0.04 Sodium 132 L Potassium 4.8 Chloride 99 Carbon Dioxide 19 L Anion Gap 14 BUN 31 H Creatinine 1.0 H Estimated GFR/1.73 m2 > 60 BUN/Creatinine Ratio 31 Glucose 201 H Calculated Osmolality 277 Calcium 9.4 Total Bilirubin 0.54 AST 88 H ALT 64 H Alkaline Phosphatase 367 H Total Protein 6.5 Albumin 3.2 L Globulin 3.3 Albumin/Globulin Ratio 1.0 Orders Category Date Time Status HEAD/C-SPINE W/O CONTRAST [CT] Stat Exams 11/06/16 18:13 Ordered CBC WITH ELECTRONIC DIFF [HEME] Stat Lab 11/06/16 17:33 Completed COMPREHENSIVE METABOLIC PANEL [CHEM] Stat Lab 11/06/16 17:33 Completed LRPC (RED CELLS) [BBK] Stat Lab 11/06/16 18:01 Received PROTIME WITH INR [COAG] Stat Lab 11/06/16 18:01 Received TYPE & SCREEN [BBK] Stat Lab 11/06/16 18:01 Received UA NIMS W/REFLEX CULT [URINALYSIS] Stat Lab 11/06/16 17:29 Uncollected 0.9% Sodium Chloride Inj [Ns] 1,000 ml Med 11/06/16 17:32 Active IV 250 mls/hr 0.9% Sodium Chloride Inj [Ns] 80 ml Med 11/06/16 18:15 Ordered Pantoprazole [Protonix] 80 mg IV 10 mls/hr Pantoprazole [Protonix] 80 mg Med 11/06/16 18:11 Active 0.9% Sodium Chloride Inj [Ns] 80 ml IV NOW EKG [EKG] Stat Ther 11/06/16 16:39 Ordered Departure <Aurelio Sharp - Last Filed: 11/06/16 17:45> - Departure Time of Disposition Decision: 18:15 Certified Medical Emergency: Emergent - Critical Care Note This patient required my direct personal management.: Yes <Nilo Acevedo - Last Filed: 11/06/16 18:17> - Departure DIAGNOSIS: GI bleed Qualifiers: GI bleed type/associated pathology: unspecified gastrointestinal hemorrhage type Qualified Code(s): K92.2 - Gastrointestinal hemorrhage, unspecified Disposition: ADMITTED INPATIENT 09 Condition: Fair Referrals and Follow-Ups: Lianet Garrido MD [Primary Care Provider] - This chart was documented by the indicated scribe, (Josesito Baugh, Scribe) and accurately reflects the services I performed and decisions made by me, Aurelio Sharp MD, as attested by the provider's signature.
[2016-11-06 17:55] LABS: BASO% 0.4 % (0.0-0.8); EOS# 0.05 X1000 (0.0-0.7); EOS% 0.5 % (0.0-10.0); HEMATOCRIT 17.9 % (37.0-47.0); HEMOGLOBIN 9.1 g/dL (12.0-16.0); IMM GRAN# 0.02 X1000 (0.0-0.04); IMM GRAN% 0.2 % (0.0-0.5); LYMPH# 3.05 X1000 (1.2-3.4); LYMPH% 27.7 % (20.5-51.1); MANUAL DIFF NEEDED? NO; MCH 49.5 PG (27-31); MCV 97.3 FL (81-99); MONO# 0.64 X1000 (0.11-0.59); MONO% 5.8 % (1.7-9.3); MPV 10.6 FL (7.4-10.4); NEUT% 65.4 % (42.2-75.2); PLT 255 X1000 (130-400); RBC 1.84 XMIL (4.2-5.4)
[2016-11-06 18:07] LABS: AGAP 14; ALBUMIN 3.2 g/dL (3.5-5.0); ALKALINE PHOSPHATASE 367 U/L (32-104); BUN 31 mg/dL (8-22); CALCIUM 9.4 mg/dL (8.8-10.2); CHLORIDE 99 mmol/L (98-107); COSMO 277; GOT 88 U/L (10-30); GPT 64 U/L (10-36); POTASSIUM 4.8 mmol/L (3.5-5.1); SODIUM 132 mmol/L (136-145); TCO2 19 mmol/L (25-35); TOTAL BILIRUBIN 0.54 mg/dL (0.20-1.00); TOTAL PROTEIN 6.5 g/dL (6.3-8.3)
[2016-11-06] MEDS ORDERED: PROTONIX 80 MG in NS 80 ML IV ONE (18:11)
[2016-11-06 18:14] LABS: MCHC > 40.0 g/dL (33-37)
[2016-11-06 18:21] LABS: INR 1.02; PROTIME 10.7 Seconds (9.2-11.7)
[2016-11-06] MEDS ORDERED: ALPHAGAN 0.2% OPHTH SOLN OPH SCH (19:48)
[2016-11-06] MEDS ORDERED: ZOFRAN IV PRN (19:48)
[2016-11-06] MEDS ORDERED: TYLENOL PO PRN (19:48)
[2016-11-06] MEDS ORDERED: SODIUM CHLORIDE 0.9% INJ ONE (19:48)
--- NOTE | 2016-11-06 20:50 | HISTORY AND PHYSICAL ---
HISTORY OF PRESENT ILLNESS: An 86-year-old, who I had recently seen in the hospital back on 09/28/2016. At that time she came in with hyperglycemia and altered mental status and felt she had hyperosmolar hyperglycemic episode. Started her on insulin, seemed to do better. PAST MEDICAL HISTORY: 1. Diabetes mellitus type 2. 2. Hypercholesterolemia. 3. Hypertension. 4. She was on some Lexapro because was having a lot of sweating and she tried that for a while. She is not on that anymore. She says she has been feeling great and felt great yesterday, felt great this morning. No nausea. No abdominal pain, but noticed her stomach was a little upset. She had some chili yesterday I think and when she went to the bathroom she had blood in her stool and irritated colon and shortly after that, she passed out and did bump her lip and came to the emergency room. In the emergency room, her laboratory, hemoglobin was 9, hematocrit was 17. The rest of her blood count was unremarkable. Electrolytes looked good. I think one of her daughters is with her. FAMILY HISTORY: Noncontributory. ALLERGIES: No known drug allergies. SOCIAL HISTORY: Negative for alcohol or tobacco. REVIEW OF SYSTEMS: General: Feels like her weight has been good, she has been eating good. No complaints. HEENT: Unremarkable. Respiratory: No increased work of breathing or dyspnea. Cardiovascular: No chest pain or tachy palpitation. GI/: Unremarkable. Musculoskeletal/Neurologic: No significant complaints. Endocrinologic/Hematologic: No significant history. PHYSICAL EXAMINATION: VITAL SIGNS: Temperature 98.3 degrees, pulse 84, respirations 18, blood pressure 134/80. EYES: Pupils are equal, round. LUNGS: Clear in all lung iniguez. CARDIOVASCULAR: Regular rate without murmur or S3. ABDOMEN: Soft. SKIN: Warm and dry. Weight 132 pounds. RECTAL: Heme-positive stool. Bright red blood mixed with stool. She has a little hematoma of her right lip. MUSCULOSKELETAL: Otherwise, no sign of hematoma or ecchymosis. LABORATORY: White blood cell count 11,020, hematocrit 17, hemoglobin 9.1, platelet count 255,000. Sodium 132. Potassium 4.8, chloride 99, bicarb 19, BUN 31, creatinine 1. Blood sugar 277. Liver functions unremarkable. AST was 80. ALT was 64. Some mild elevation. Alkaline phos 367. PT was 10.7. INR 1.07. HOME MEDICATIONS: 1. Lipitor 40 mg a day. 2. Amlodipine 5 mg a day. 3. Aspirin 81 mg a day. 4. Plavix 75 mg a day. 5. Alphagan eyedrops 0.2% each I think once a day. 6. Periactin 4 mg p.o. b.i.d. 7. Lexapro 10 mg a day. 8. Insulin. Humulin 70-30 10 units twice a day. 9. Losartan/hydrochlorothiazide daily. 10. Omeprazole 40 mg a day. ASSESSMENT AND PLAN: 1. Lower gastrointestinal bleed. Obviously we will hold the Plavix and hold the aspirin. Give her 2 units of blood. Give her some IV fluids. I will ask Dr. Nieves to see her. I believe she has had a colonoscopy 3 years ago and it was unremarkable. Concerned with a lower gastrointestinal bleeding even in the face of Plavix. I think we are going to have to look again. I probably will need to get a CT of her abdomen and pelvis, as well. Liver enzymes mildly elevated. Not sure why. 2. Elevated transaminases. I will check a hepatitis profile, but will also probably most likely need to get a study, CT of abdomen and pelvis. 3. Because she fell and hit her head, we will get a CT of her head and her neck. No complaints of pain. No focal neurologic findings, and no altered mental status. I may hold her blood pressure medicine for now. 4. Hypertension. I think I will hold her losartan and amlodipine until we gave her some blood and see how we do. 5. Diabetes mellitus type 2. We will check pattern sugars. Sugars have been doing well recently. She has felt good in general. cc: Jhoan Stiles MD
[2016-11-06 22:49] LABS: URINE CULTURE NEEDED? NO; URINE MICRO REVIEW NEEDED? NO; URINE SOURCE CLEAN CATCH
[2016-11-06 22:56] LABS: BILIRUBIN URINE NEGATIVE (NEGATIVE); BLOOD URINE NEGATIVE (NEGATIVE); COLOR YELLOW; GLUCOSE URINE NEGATIVE (NEGATIVE); LEUKOCYTES URINE NEGATIVE (NEGATIVE); NITRITE URINE NEGATIVE (NEGATIVE); PH URINE 5.5; PROTEIN URINE NEGATIVE (NEGATIVE); SP GRAVITY URINE 1.018; TURBIDITY URINE CLEAR (CLEAR); UROBILINOGEN URINE NORMAL (NORMAL)
[2016-11-06 22:58] LABS: UR EPITHELIAL CELLS <10 /HPF (<10); URINE BACTERIA NEGATIVE /HPF; URINE RBC <10 /HPF (<10); URINE WBC <10 /HPF (<10)
[2016-11-06] MEDS: NS 1,000 ML IV SCH (23:03)
[2016-11-07] MEDS: PROTONIX 80 MG in NS 80 ML IV SCH ×3 (00:15→14:43)
[2016-11-07] MEDS: NS 1,000 ML IV SCH ×3 (04:52→22:45)
--- NOTE | 2016-11-07 05:19 | EKG Report ---
Test Performed on : 11/06/2016 4:40:44 PM Test Reason : SYNCOPE Blood Pressure : / mmHG Vent. Rate : 071 BPM Atrial Rate : 071 BPM P-R Int : 140 ms QRS Dur : 088 ms QT Int : 410 ms P-R-T Axes : 063 009 045 degrees QTc Int : 445 ms Normal sinus rhythm. Normal ECG When compared with ECG of 28-SEP-2016 13:54, T wave amplitude has increased in Anterior leads Confirmed by Kallie GUZMAN, Wilfredo Mckay ([id number]) on 11/07/2016 8:22:28 AM
[2016-11-07 07:06] LABS: MANUAL DIFF NEEDED? NO
[2016-11-07 07:14] LABS: BASO% 0.5 % (0.0-0.8); EOS# 0.08 X1000 (0.0-0.7); HEMATOCRIT 28.4 % (37.0-47.0); HEMOGLOBIN 10.2 g/dL (12.0-16.0); IMM GRAN# 0.02 X1000 (0.0-0.04); IMM GRAN% 0.3 % (0.0-0.5); LYMPH# 3.02 X1000 (1.2-3.4); LYMPH% 38.1 % (20.5-51.1); MCH 32.9 PG (27-31); MCHC 35.9 g/dL (33-37); MCV 91.6 FL (81-99); MONO# 0.52 X1000 (0.11-0.59); MONO% 6.6 % (1.7-9.3); NEUT% 53.5 % (42.2-75.2); PLT 185 X1000 (130-400)
--- NOTE | 2016-11-07 07:43 | Diag Imaging Result Document ---
PROCEDURE NAME: ABDOMEN/PELVIS W/CONTRAST - 11/06/2016 CT ABDOMEN AND PELVIS WITH INTRAVENOUS CONTRAST, 11/06/2016: A CT dose reduction protocol was used. COMPARISON: 06/13/2014. FINDINGS: There are a couple of tiny nodules in the right lower lobe but no infiltrates. Heart size is normal. The liver demonstrates a gentle lobular contour suggesting cirrhosis. No liver masses. Stable tiny cyst in the spleen. Gallbladder is absent. Stable dilation of the common bile duct but no intrahepatic biliary dilation. The splenic vein, superior mesenteric vein, main portal vein and major hepatic veins are patent. Stable malrotation of the right kidney. Stable shotty retroperitoneal adenopathy. Stable extremely severe diverticulosis throughout the entire colon. No visible bowel obstruction or inflammation. Urinary bladder and rectum are normal. Stable small left ovarian cyst measuring 14 mm. Heavy degenerative changes throughout the spine. No acute bony lesions. IMPRESSION: 1. Probable cirrhosis. 2. Severe diverticulosis coli. 3. No changes from 06/13/2014. [facility]
--- NOTE | 2016-11-07 07:46 | Diag Imaging Result Document ---
PROCEDURE NAME: HEAD/C-SPINE W/O CONTRAST - 11/06/[address], 11/06/2016: A CT dose reduction protocol was used. COMPARISON: 07/13/2015. FINDINGS: The ventricles and sulci are normal in size and contour. There is no mass, hemorrhage, or evidence of acute ischemia. The bony calvaria is intact. The visualized paranasal sinuses and mastoid air cells are clear. IMPRESSION: Negative head CT. CT CERVICAL SPINE, 11/06/2016: A CT dose reduction protocol was used. COMPARISON: Ultrasound thyroid 07/29/2013. FINDINGS: There is a stable massive thyroid goiter diffusely. Alignment is anatomic. Vertebral body heights and intervertebral disk spaces are preserved. No fracture or subluxation. IMPRESSION: No acute disease or change from prior. [facility]
[2016-11-07 08:00] LABS: AGAP 13; ALKALINE PHOSPHATASE 307 U/L (32-104); BUN 26 mg/dL (8-22); CALCIUM 8.5 mg/dL (8.8-10.2); CHLORIDE 107 mmol/L (98-107); COSMO 288; GOT 67 U/L (10-30); GPT 51 U/L (10-36); MAGNESIUM 1.6 mg/dL (1.5-2.7); POTASSIUM 4.5 mmol/L (3.5-5.1); SODIUM 139 mmol/L (136-145); TCO2 19 mmol/L (25-35); TOTAL PROTEIN 5.8 g/dL (6.3-8.3)
[2016-11-07] MEDS: LEXAPRO PO SCH (09:09)
[2016-11-07] MEDS: HUMULIN 70/30 SUBQ SCH ×2 (09:09→16:57)
--- NOTE | 2016-11-07 09:14 | PROGRESS NOTE ---
DATE: 11/07/2016 SUBJECTIVE: Ms. Choudhary had a good night. No abdominal pain. No nausea. Comfortable. OBJECTIVE: Vital Signs: Temp 99.2 degrees, pulse 68, respirations 16, blood pressure 121/58. HEENT: Pupils are equal, round. Lungs: Clear in all lung iniguez. Cardiovascular Exam: Regular rhythm and rate without murmur or S3. Abdomen: Soft. Skin: Warm and dry. Weight: 122 pounds. : Output 800 mL. LABS AND X-RAYS: White count 7930, hematocrit 28, platelet count 185,000. Sodium 132, potassium 4.8, chloride 99, bicarbonate 19, BUN 31, creatinine 1.0. AST 88, ALT 64, alkaline phos 367. CA was 5.9. She had a CT of the abdomen and pelvis yesterday that showed probable cirrhosis, severe diverticulosis coli. No changes from 06/13/2014. She has a gentle lobar contour suggesting cirrhosis. No liver masses. Stable tiny cysts in the spleen. Gallbladder is absent. Stable dilatation of common bile duct. No intrahepatic biliary dilatation, including superior mesenteric vein, main portal vein, and major hepatic. The veins are patent. ASSESSMENT AND PLAN: 1. Rectal bleeding. She does have diverticulosis. She was on Plavix and aspirin. She had a colonoscopy apparently just 3 years ago. We will see what Dr. Nieves thinks. Suspect that we have to look at the colon again. 2. Possible mild cirrhosis. Liver enzymes mildly elevated. Hepatitis profile pending. 3. Diabetes mellitus type 2. Recent admission for hyperosmolar hyperglycemic state. She has done well since she has been home on insulin. Continue present fluid. She is on clear liquids. I discussed with Dr. Nieves. cc: Jhoan Stiles MD
[2016-11-07] MEDS ORDERED: GOLYTELY PO ONE (14:00)
[2016-11-07 16:42] LABS: BASO% 0.8 % (0.0-0.8); EOS# 0.12 X1000 (0.0-0.7); EOS% 1.2 % (0.0-10.0); HEMOGLOBIN 11.3 g/dL (12.0-16.0); IMM GRAN# 0.12 X1000 (0.0-0.04); IMM GRAN% 1.2 % (0.0-0.5); LYMPH# 3.03 X1000 (1.2-3.4); LYMPH% 31.1 % (20.5-51.1); MANUAL DIFF NEEDED? YES; MCH 29.4 PG (27-31); MCHC 33.2 g/dL (33-37); MCV 88.5 FL (81-99); MONO# 0.81 X1000 (0.11-0.59); MONO% 8.3 % (1.7-9.3); MPV 10.6 FL (7.4-10.4); NEUT% 57.4 % (42.2-75.2); PLT 197 X1000 (130-400); RBC 3.84 XMIL (4.2-5.4)
[2016-11-07 16:50] LABS: EOS 1 % (1-10); LYMPHS 24 % (21-51); MONO 6 % (1-9)
--- NOTE | 2016-11-07 17:32 | CONSULTATION ---
DATE OF CONSULTATION: 11/07/2016 REFERRING PHYSICIAN: Jhoan Stiles MD PRIMARY DOCTOR: Jhoan Stiles MD. REASON FOR CONSULTATION: Melena and rectal bleeding. HISTORY OF PRESENT ILLNESS: Ms. Choudhary is an 86-year-old female, who was admitted on 11/06/2016 with new onset of melena, rectal bleeding, anemia. According to the patient, yesterday when she went to the bathroom, she noted some dark blood mixed with fresh blood in the stool. After that episode she passed out and bumped her lip. In the ER she was noted to have a hematocrit of 17. She denied any nausea, vomiting, vomiting blood. She has a history of diverticulosis with diverticular bleed in the past. She also history of constipation in the past. She has a previous history of peptic ulcer disease in the past. She has history of use of blood thinners and is on aspirin and Plavix at home which were withheld since admission. In the hospital in the last 24 hours, she has had 1 bowel movement which was dark in color mixed with fresh blood. She has so far received 2 units blood transfusion overnight. She denies any abdominal pain otherwise. She was noted to be hypoglycemic which is being corrected by primary care team. PAST MEDICAL HISTORY: Type 2 diabetes, hyperlipidemia, hypertension, GI bleed, diverticulosis, peptic ulcer disease, reflux disease, coronary artery disease on aspirin and Plavix. Also has a history of common bile duct stricture. Had ERCP with stent placement removal by Dr. Stinson in the past. PAST SURGICAL HISTORY: EGD and colonoscopy in the past a few years ago. Denies history of colon cancer. FAMILY HISTORY: Noncontributory. No history of colon cancer in family. ALLERGIES: No known drug allergies. SOCIAL HISTORY: Denies history of alcohol, tobacco or illicit drugs. Lives at home. Very supportive family at bedside. USUAL MEDICATIONS AT HOME: 1. Amlodipine 5 mg every day. 2. Losartan/hydrochlorothiazide 100/325 every day. 3. Omeprazole 40 mg a day. 4. Cyproheptadine 4 mg p.o. b.i.d. 5. Alphagan eyedrops as directed. 6. Plavix 75 mg a day. 7. Aspirin 80 mg a day. 8. Lexapro 10 mg every day. 9. Lipitor 40 mg every day. 10. Insulin Humulin 70/30, 10 units subcutaneous b.i.d. MEDICATIONS IN THE HOSPITAL: 1. Tylenol. 2. Lexapro. 3. Humulin 70/30, 10 units b.i.d. 4. IV fluids 125 mL/hour. 5. Zofran 4 mg IV every 4 hours. 6. Protonix IV b.i.d. Currently on Protonix drip. DIET: Clear liquid diet. REVIEW OF SYSTEMS: Denies any current fevers, rigors, chills, chest pain, shortness of breath, dyspnea. Denies any genitourinary or neurologic complaints. She did have a history of syncopal event at home secondary to GI bleeding. She denies any vomiting blood or coffee emesis. She does complain of melena starting yesterday and rectal bleeding starting yesterday. PHYSICAL EXAMINATION: Vital signs: Temperature 99.2 degrees, pulse rate of 68, lipase is 16. Blood pressure 120/58, saturating 100% room air. Body weight of 122 pounds 8 ounces. BMI 20.4 kg/m2. General Appearance: Moderate built, moderately nourished, standing by the bed in no acute distress. HEENT: Pale conjunctivae, no icterus. Pupils equal, round. Neck supple. Chest: Decreased. Cardiovascular: Regular rhythm. No murmur. Abdomen: Soft, nontender, nondistended. Bowel sounds noted. No rebound or guarding. Extremities: No cyanosis, no edema. Neurologic: Alert and awake. Answers questions. LABORATORY: Her hemoglobin and hematocrit is 10.2 and 28.4, white count of 7.9, platelet count of 185,000, MCV of 91.6, hemoglobin and hematocrit on admission was 9.1 and 17.9, INR 1.02. PT of 10.7. Sodium 139, potassium 4.5, chloride 105, bicarb 19, BUN of 26, creatinine 0.9, anion gap of 13, bicarb 19, glucose of 199, calcium is 8.5, magnesium 1.6. Total bilirubin is 0.6. AST 67, ALT 51, alkaline phosphatase 307, alkaline phosphatase is 307. Total protein 5.8, albumin of 3. CEA is 5.9, TSH 0.69. Urinalysis clear. IMAGING: CT scan done on 11/06/2016 showed a couple of tiny nodules in the right lower lobe and no infiltrates. Heart size is normal. The liver demonstrates gentle lobular contour suggesting cirrhosis. No liver masses. Stable tiny cyst in the spleen. Gallbladder is absent. Stable dilation of the common bile duct, but no intrahepatic duct dilation. The splenic vein, superior mesenteric vein, main portal vein, and major hepatic veins appear patent. Stable malrotation of the right kidney. Stable shotty retroperitoneal adenopathy. Stable extremely severe diverticulosis throughout the entire colon. No visible bowel obstruction or inflammation. Urinary bladder and rectum are normal. Stable small left ovarian cyst measuring 14 mm. Heavy degenerate changes throughout the spine. IMPRESSION AND PLAN: 1. Rectal bleeding. 2. Melena. 3. History of coronary artery disease, on aspirin and Plavix. Has been held. 4. Severe anemia, required 2 blood transfusions. 5. Severe diverticulosis of the colon. 6. Chronic back pain. 7. Reflux disease. 8. 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 9. Elevated liver enzymes. RECOMMENDATIONS: 1. We will start the patient Protonix drip for now. We will hold aspirin and Plavix for now as per the primary care team. 2. We will type and cross, transfuse to keep hematocrit above 27%. 3. The patient is scheduled for esophagogastroduodenoscopy and colonoscopy tomorrow. 4. We will to check a hepatitis panel. 5. We will obtain the records of last esophagogastroduodenoscopy and colonoscopy from my office. 6. The patient will be recommended to avoid corn, nuts, and seeds in the diet at home and also avoid constipation at home. 7. Patient also encouraged to avoid any nonsteroidal antiinflammatory drugs at home. 8. The above plan of care discussed with the patient and family at bedside. All questions answered. cc: MD Jhoan Montes De Oca MD Bernice Swain, MD
[2016-11-07 17:40] LABS: HEMATOCRIT 33.3 % (37.0-47.0); HEMOGLOBIN 11.1 g/dL (12.0-16.0)
[2016-11-07 20:09] LABS: MANUAL DIFF NEEDED? NO
[2016-11-07 20:51] LABS: BASO% 0.4 % (0.0-0.8); EOS# 0.12 X1000 (0.0-0.7); EOS% 1.3 % (0.0-10.0); LYMPH# 2.83 X1000 (1.2-3.4); LYMPH% 31.2 % (20.5-51.1); MCH 29.1 PG (27-31); MCHC 32.6 g/dL (33-37); MCV 89.3 FL (81-99); MONO# 0.66 X1000 (0.11-0.59); MONO% 7.3 % (1.7-9.3); MPV 10.2 FL (7.4-10.4); NEUT% 59.8 % (42.2-75.2); PLT 179 X1000 (130-400); RBC 3.09 XMIL (4.2-5.4)
[2016-11-07 20:52] LABS: HEMATOCRIT 27.6 % (37.0-47.0)
[2016-11-08] MEDS: PROTONIX 80 MG in NS 80 ML IV SCH ×3 (00:31→20:25)
[2016-11-08 02:13] LABS: MANUAL DIFF NEEDED? NO
[2016-11-08 02:44] LABS: BASO% 0.5 % (0.0-0.8); EOS# 0.16 X1000 (0.0-0.7); HEMATOCRIT 24.2 % (37.0-47.0); HEMOGLOBIN 7.9 g/dL (12.0-16.0); IMM GRAN# 0.04 X1000 (0.0-0.04); IMM GRAN% 0.5 % (0.0-0.5); LYMPH% 32.5 % (20.5-51.1); MCH 28.6 PG (27-31); MCHC 32.6 g/dL (33-37); MCV 87.7 FL (81-99); MONO# 0.59 X1000 (0.11-0.59); MONO% 7.4 % (1.7-9.3); MPV 10.3 FL (7.4-10.4); NEUT% 57.1 % (42.2-75.2); PLT 166 X1000 (130-400); RBC 2.76 XMIL (4.2-5.4)
[2016-11-08] MEDS: LEXAPRO PO SCH (08:36)
[2016-11-08] MEDS: NS 1,000 ML IV SCH ×2 (08:36→15:15)
[2016-11-08] MEDS: HUMULIN 70/30 SUBQ SCH ×2 (08:36→17:14)
[2016-11-08 08:48] LABS: MANUAL DIFF NEEDED? NO
[2016-11-08 09:01] LABS: BASO% 0.4 % (0.0-0.8); EOS# 0.13 X1000 (0.0-0.7); EOS% 1.8 % (0.0-10.0); HEMATOCRIT 21.8 % (37.0-47.0); HEMOGLOBIN 7.6 g/dL (12.0-16.0); IMM GRAN# 0.02 X1000 (0.0-0.04); IMM GRAN% 0.3 % (0.0-0.5); LYMPH# 2.29 X1000 (1.2-3.4); LYMPH% 30.9 % (20.5-51.1); MCH 32.8 PG (27-31); MCHC 34.9 g/dL (33-37); MONO# 0.45 X1000 (0.11-0.59); MONO% 6.1 % (1.7-9.3); MPV 10.1 FL (7.4-10.4); NEUT% 60.5 % (42.2-75.2); PLT 160 X1000 (130-400); RBC 2.32 XMIL (4.2-5.4)
[2016-11-08 10:29] LABS: HEPATITIS PROFILE ACUTE SEE COMMENTS
--- NOTE | 2016-11-08 11:08 | PROGRESS NOTE ---
DATE: 11/08/2016 SUBJECTIVE: She had a lot of bloody stool yesterday. Had a good night. Slept well. No pain. No nausea. The swelling and ecchymosis on the right upper lip has gone down. OBJECTIVE: Vital Signs: Temperature 99 degrees, pulse 69, respirations 19, blood pressure 144/48. HEENT: Pupils are equal, round, lungs are clear in all lung iniguez. Cardiovascular: Regular rhythm and rate without murmur or S3. Abdomen: Soft. Skin is warm and dry. Urine output 4 L. LAB: White count 7990, hematocrit is 24, it got up to 34 yesterday. Platelet count a 166,000. Chemistry: Sodium 139, potassium 4.5, chloride 107 bicarb 19, BUN 26, creatinine 0.9. AST went from 88 to 67, ALT 64 to 51, alkaline phosphatase 307. Carcinoembryonic antigen was 5.9. ASSESSMENT AND PLAN: 1. Lower gastrointestinal bleeding/rectal bleeding, melena as well. Will need an esophagogastroduodenoscopy and colonoscopy. I think that is the plan today. 2. Chronic atrial fibrillation, rate controlled. Hemodynamically stable. 3. Blood loss anemia. I have given her some blood. We will have to give her some more. 4. History of diverticulosis, aware. 5. Diabetes mellitus type 2. Follow her sugars. They are running a little high at the present time. 6. Review of her orders: The patient on Lexapro 10 mg a day. Protonix 40 mg IV q.12 hours. In addition, she is on a Protonix drip. I think the plan is for colonoscopy, EGD today. cc: Jhoan Stiles MD
[2016-11-08] MEDS ORDERED: DIPRIVAN 1% ONE (12:15)
[2016-11-08] MEDS ORDERED: FENTANYL ONE (12:15)
[2016-11-08] MEDS ORDERED: CLAVE SECONDARY SET 11953 ONE (13:09)
[2016-11-08] MEDS ORDERED: XYLOCAINE-MPF 2% ONE (13:09)
[2016-11-08] MEDS ORDERED: HYZAAR 100/12.5 MG TAB PO ONE (13:30)
[2016-11-08] MEDS ORDERED: NORVASC PO ONE (13:31)
[2016-11-08 15:17] LABS: MANUAL DIFF NEEDED? NO
[2016-11-08 15:53] LABS: BASO% 0.4 % (0.0-0.8); EOS# 0.12 X1000 (0.0-0.7); EOS% 1.3 % (0.0-10.0); HEMATOCRIT 29.7 % (37.0-47.0); HEMOGLOBIN 9.9 g/dL (12.0-16.0); IMM GRAN# 0.02 X1000 (0.0-0.04); IMM GRAN% 0.2 % (0.0-0.5); LYMPH# 2.93 X1000 (1.2-3.4); LYMPH% 32.4 % (20.5-51.1); MCH 29.6 PG (27-31); MCHC 33.3 g/dL (33-37); MCV 88.9 FL (81-99); MONO# 0.54 X1000 (0.11-0.59); MPV 10.5 FL (7.4-10.4); NEUT% 59.7 % (42.2-75.2); PLT 167 X1000 (130-400); RBC 3.34 XMIL (4.2-5.4)
[2016-11-08] MEDS ORDERED: INSULIN PEN NEEDLES ONE (17:07)
[2016-11-09] MEDS: NS 1,000 ML IV SCH ×2 (01:18→08:47)
[2016-11-09] MEDS: PROTONIX 80 MG in NS 80 ML IV SCH (05:59)
[2016-11-09] MEDS: NORVASC PO SCH (08:48)
[2016-11-09] MEDS: LEXAPRO PO SCH (08:49)
[2016-11-09] MEDS: HUMULIN 70/30 SUBQ SCH ×2 (08:51→16:03)
[2016-11-09] MEDS: HYZAAR 100/12.5 MG TAB PO SCH (09:00)
--- NOTE | 2016-11-09 09:23 | PROGRESS NOTE ---
DATE: 11/09/2016 SUBJECTIVE: Ms. Choudhary states she really did not have any bleeding noticed yesterday in her bowels, but then apparently this morning she did. She feels good. She wants to go home. OBJECTIVE: Vital signs: Temperature 99.1 degrees, pulse 102, respirations 17, blood pressure 145/34. Eyes: Pupils are equal, round. Lungs: Clear in all lung iniguez. Cardiovascular exam: Regular rhythm and rate without murmur or S3. Abdomen: Soft. Skin: Warm and dry. : Urine output about 3500 mL. LAB: Reviewed from yesterday: Hematocrit was 29 after 2 units of blood. Blood sugar 213, 213 and 294. ASSESSMENT AND PLAN: 1. Lower gastrointestinal bleed. Still has some blood. Apparently no active bleeding, but appeared consistent with diverticular bleed. She is off of her Plavix and aspirin. She wants to go home. I think we will watch her today. If stable, maybe can go home this afternoon. 2. Chronic atrial fibrillation, rate controlled. 3. Blood loss anemia. I have her on iron. 4. Diabetes mellitus type 2. Sugars appear well controlled. We will check another hematocrit and hemoglobin today. Review of her orders: Blood pressure appears well controlled. I do not see any change. Will add iron. cc: Jhoan Stiles MD
[2016-11-09 09:37] LABS: HEMATOCRIT 30.8 % (37.0-47.0); HEMOGLOBIN 10.3 g/dL (12.0-16.0)
[2016-11-09] MEDS ORDERED: SODIUM CHLORIDE 0.9% INJ PRN (16:00)
[2016-11-09] MEDS: PROTONIX IV SCH (16:01)
[2016-11-09 16:23] LABS: MANUAL DIFF NEEDED? NO
[2016-11-09 16:30] LABS: BASO% 0.3 % (0.0-0.8); EOS% 1.1 % (0.0-10.0); HEMATOCRIT 29.9 % (37.0-47.0); HEMOGLOBIN 10.2 g/dL (12.0-16.0); IMM GRAN# 0.02 X1000 (0.0-0.04); IMM GRAN% 0.2 % (0.0-0.5); LYMPH# 2.73 X1000 (1.2-3.4); LYMPH% 29.4 % (20.5-51.1); MCH 30.4 PG (27-31); MCHC 34.1 g/dL (33-37); MCV 89.3 FL (81-99); MONO# 0.51 X1000 (0.11-0.59); MONO% 5.5 % (1.7-9.3); MPV 9.8 FL (7.4-10.4); NEUT% 63.5 % (42.2-75.2); PLT 155 X1000 (130-400); RBC 3.35 XMIL (4.2-5.4)
[2016-11-10] MEDS: PROTONIX IV SCH (04:10)
[2016-11-10 07:32] VITALS: BP 153/65
[2016-11-10] MEDS ORDERED: INSULIN PEN NEEDLES ONE (08:05)
[2016-11-10] MEDS: LEXAPRO PO SCH (08:18)
[2016-11-10] MEDS: HYZAAR 100/12.5 MG TAB PO SCH (08:18)
[2016-11-10] MEDS: HUMULIN 70/30 SUBQ SCH (08:18)
[2016-11-10] MEDS: NORVASC PO SCH (08:18)
[2016-11-10] MEDS ORDERED: ICAR-C PO SCH (09:00)
--- NOTE | 2016-11-10 10:06 | DISCHARGE SUMMARY ---
ADMISSION DATE: 11/06/2016 DISCHARGE DATE: 11/10/2016 HISTORY OF PRESENT ILLNESS: This is an 86-year-old who was admitted to the hospital back on 09/28/2016. At that time, she came with in hyperosmolar hyperglycemic episode and was started on insulin, who has done well at home and then presented with nausea and she had some lower GI bleeding. PAST MEDICAL HISTORY: 1. Diabetes mellitus type 2. 2. Hypercholesterolemia. 3. Hypertension. 4. She is on Lexapro because of some night sweats I think and some anxiety. HOSPITAL COURSE: She was admitted and documented blood in her stool. We stopped her Plavix and aspirin. Dr. Nieves was consulted. He performed colonoscopy and saw old bleeding but no active bleeding, and she had diverticulosis. Patient continued to pass some old blood. Hematocrit remained stable. She received I think a total of 4 units of packed red blood cells. The patient's diet was advanced to a mechanical soft diet. Tolerated that well. [place] she could go home on 11/10/2016. We will discharge her on her previous medications. She is on amlodipine 5 mg a day, losartan/hydrochlorothiazide 100/325 daily, omeprazole 40 mg a day, cyproheptadine 4 mg p.o. b.i.d., Alphagan eyedrops as directed. Plavix has been held and aspirin to be held. Lexapro 10 mg a day, Lipitor 40 mg a day, insulin Humulin 70/30 which she takes b.i.d. Note, she is off cyproheptadine. We will see her back in my office in a couple weeks. cc: Jhoan Stiles MD
--- NOTE | 2016-11-10 10:18 | PROGRESS NOTE ---
DATE: 11/10/2016 SUBJECTIVE: Ms. Choudhary feels good, had a good night. She is anxious to go home. PHYSICAL EXAMINATION: Vital Signs: Temperature 98.8 degrees, pulse 61, respirations 18, blood pressure 153/65. CVP less than 6 cm. Lungs: Clear in all lung iniguez. Cardiovascular Examination: Regular rhythm and rate without murmur or S3. Is and Os: Her urine output was above 2.5 L. LAB: Hematocrit stable at 29, hemoglobin 10. Yesterday, it was 30. IMPRESSION AND PLAN: Blood sugars look good so I think she is okay to go home today with discharge. cc: Jhoan Stiles MD
--- NOTE | 2016-11-11 08:48 | PROGRESS NOTE ---
DATE: 11/09/2016 SUBJECTIVE: Ms. Choudhary was doing fine until just a few minutes ago. She started having some bowel movement, which has some clots and fresh blood. She is concerned about it. She denies having any abdominal pain. She is still on liquid diet. OBJECTIVE: Vital Signs: Temperature 98, pulse 90, respirations 17, blood pressure 140/60. HEENT: Pupils are equal and reacting to light. There is conjunctival pallor present. No scleral icterus. Neck: Supple. Trachea midline. Heart: Normal first and second heart sounds. Lungs: Clear. Abdomen: Soft. Nontender. Extremities: Unremarkable. LABORATORY: Hemoglobin and hematocrit are stable. Hematocrit 29, blood sugars are high at 200 range. IMPRESSION: 1. Diverticular bleed. She had similar bleed before. She has been stable, however, she has some fresh blood that is concerning. 2. Chronic atrial fibrillation, which is rate controlled. 3. Blood loss anemia. 4. Diabetes mellitus type 2. RECOMMENDATION: We will hold off her discharge. Will do a stat H and H. She is elderly and daughter is at bedside and I think we will keep her another day. All the other conditions above will be followed carefully. We will advance her diet, presuming that the blood is probably old leftover blood. That she has bowel movements. If she remains stable and her blood count is normal, she could be discharged tomorrow. cc: [place] Stinson MD
--- NOTE | 2016-11-22 16:38 | OPERATIVE NOTE ---
PROCEDURE DATE: 11/08/2016 PROCEDURES: 1. Colonoscopy. 2. Esophagogastroduodenoscopy. PREOPERATIVE DIAGNOSES: 1. Anemia secondary to blood loss. 2. Rectal bleeding. POSTOPERATIVE DIAGNOSES: 1. Possible diverticular bleed. No active bleeding. 2. Normal esophagogastroduodenoscopy. DESCRIPTION OF PROCEDURE: After informed consent and adequate intravenous sedation by Anesthesia, the scope was introduced through the esophagus, stomach, and duodenum. It is completely normal. No fresh or old blood seen. No evidence of varices, Camille-Hanna tear, or AVMs. The scope is withdrawn. At this point, digital rectal examination performed and the scope introduced all the way into the cecum. Patient has moderately severe diverticulosis. There is some old blood, mostly in the left colon with some clots, but there is no active bleeding. After the colon was lavaged, there was no active bleeding in the colon. The scope is withdrawn. The patient tolerated the procedure well, without any immediate complications. cc: [place] Stinson MD
== END 2016-11-10 11:00 | disposition home or self-care (01) ==
LOC: SUPCPDRO → ED 16:26 → 3S 20:05
PROVIDERS: ATTEND Emergency Medicine